=== PATIENT | female | born 1980 ===

== ENCOUNTER 2023-06-22 06:00 | Day surgery (SDC) | payer OTHER ==
[~2023-06-22] VITALS: Ht 160 cm; Wt 63.5 kg
[~2023-06-22 06:00] MED LIST: VALACYCLOVIR1000 MG PO
[2023-06-22] MEDS ORDERED: TRAM1TAB98 PO (10:36)
== END 2023-06-22 11:45 | disposition home or self-care (01) ==
LOC: CIR.AMB 06:00
PROVIDERS: ATTEND Obstetrics & Gynecology
DX: Z30.2 Encounter for sterilization (principal); Z20.822 Contact with and (suspected) exposure to COVID-19